=== PATIENT | female | born 1995 | race Two or more races ===

== ENCOUNTER 2020-03-22 12:03 | Emergency (ER) | payer OTHER ==
--- NOTE | 2020-03-22 12:36 | ER Document Report ---
ED Medical Screen (RME) - General Chief Complaint: Vag Bleeding, +preg <12wks Stated Complaint: ABDOMINAL PAIN Time Seen by Provider: 03/22/20 12:33 Mode of Arrival: Ambulatory Information source: Patient Notes: 25-year-old female presented to ED for complaint of pelvic pain and vaginal bleeding x3 days. She states the bleeding is a little easier now than it was. She is 2 para 1. Last menstrual period was 02/13/2020. She states she does not smoke drink or use any drugs. She is alert oriented respirations regular and unlabored speaking in full sentences. I have greeted and performed a rapid initial assessment of this patient. A comprehensive ED assessment and evaluation of the patient, analysis of test results and completion of medical decision making process will be conducted by an additional ED providers. - Related Data Allergies/Adverse Reactions: No Known Allergies Allergy (Unverified 03/22/20 12:18) Past Medical History - Social History Frequency of alcohol use: None Drug Abuse: None Physical Exam - Vital signs Vitals: Temp Pulse Resp BP Pulse Ox 98.8 F 55 L 17 118/78 99 03/22/20 12:16 03/22/20 12:16 03/22/20 12:16 03/22/20 12:16 03/22/20 12:16 Course - Vital Signs Vital signs: Temp Pulse Resp BP Pulse Ox 98.8 F 55 L 17 118/78 99 03/22/20 12:19 03/22/20 12:16 03/22/20 12:16 03/22/20 12:16 03/22/20 12:16
[2020-03-22 12:50] LABS: ABSOLUTE EOSINOPHILS # (AUTO) 0.1 10^3/uL (0.0-0.6); ABSOLUTE LYMPHOCYTES (AUTO) 2.2 10^3/uL (0.5-4.7); ABSOLUTE MONOCYTES (AUTO) 0.4 10^3/uL (0.1-1.4); ABSOLUTE NEUT (AUTO) 4.9 10^3/uL (1.7-8.2); BASOPHILS % (AUTO) 0.3 % (0-2); EOSINOPHILS % (AUTO) 1.7 % (0-6); HEMOGLOBIN 13.7 g/dL (12.0-15.5); LYMPHOCYTES % (AUTO) 29.1 % (13-45); MEAN CORPUSCULAR HEMOGLOBIN 32.1 pg (27.0-33.4); MEAN CORPUSCULAR HGB CONC 34.4 g/dL (32.0-36.0); MEAN CORPUSCULAR VOLUME 93 fl (80-97); MONOCYTES % (AUTO) 5.6 % (3-13); PLATELET COUNT 362 10^3/uL (150-450); RED BLOOD COUNT 4.29 10^6/uL (3.72-5.28); RED CELL DISTRIBUTION WIDTH 13.7 % (11.5-14.0); SEGMENTED NEUTROPHILS % (AUTO) 63.3 % (42-78); TOTAL CELLS COUNTED % (AUTO) 100 %; WHITE BLOOD COUNT 7.7 10^3/uL (4.0-10.5)
[2020-03-22 13:08] LABS: ALBUMIN 4.6 g/dL (3.5-5.0); ALKALINE PHOSPHATASE 42 U/L (38-126); ANION GAP 6 (5-19); ASPARTATE AMINO TRANSFERASE 19 U/L (14-36); BILIRUBIN,TOTAL 0.7 mg/dL (0.2-1.3); BLOOD UREA NITROGEN 17 mg/dL (7-20); CALCIUM 10.1 mg/dL (8.4-10.2); CARBON DIOXIDE 26 mmol/L (22-30); CHLORIDE 106 mmol/L (98-107); GLUCOSE 92 mg/dL (75-110); POTASSIUM 4.4 mmol/L (3.6-5.0); TOTAL PROTEIN 8.2 g/dL (6.3-8.2)
--- NOTE | 2020-03-22 13:27 | RADIOLOGY REPORT (SQ) ---
EXAM DESCRIPTION: U/S OB TRANSVAGINAL W/O DOP IMAGES COMPLETED DATE/TIME: 03/22/2020 1:02 pm REASON FOR STUDY: vaginal bleeding COMPARISON: None. TECHNIQUE: Transvaginal static and realtime grayscale images acquired of the pelvis. Additional richelle cted spectral and color Doppler images recorded. All images stored on PACs. bHCG: Pending. CLINICAL DATES: MARGY: 11/19/2020. EGAi: 5 weeks 3 days LIMITATIONS: None. FINDINGS: FETUS: No Living intrauterine . UTERUS: The uterus measures 6.9 x 4.2 x 5.4 cm. No masses. No anomalies. CERVICAL LENGTH: 2.0 cm. Closed. RIGHT ADNEXA: The right ovary measures 2.6 x 1.4 x 1.7 cm. Normal ovary with normal vascular flow. No adnexal free fluid. No adnexal masses. LEFT ADNEXA: The left ovary measures 2.8 x 1.4 x 1.9 cm. Normal ovary with normal vascular flow. No adnexal free fluid. No adnexal masses. FREE FLUID: None. OTHER: The endometrial stripe measures 3.5 mm. IMPRESSION: 1. No evidence of LIVING INTRAUTERINE . Clinical correlation, correlation wit h lab values and follow-up examination suggested. TECHNICAL DOCUMENTATION: JOB ID: [id number] [employer]- All Rights Reserved rev-02/22 Reading location - IP/workstation name: [email or web address]
--- NOTE | 2020-03-22 13:48 | ER Document Report ---
ED GI/ - General Chief Complaint: Vag Bleeding, +preg <12wks Stated Complaint: ABDOMINAL PAIN Time Seen by Provider: 03/22/20 12:33 Primary Care Provider: JUDY TRINIDAD MD [ACTIVE STAFF] - Follow up as needed RASHIDA JOLLEY PA [Primary Care Provider] - Follow up as needed Mode of Arrival: Ambulatory Information source: Patient Notes: 25-year-old female presents to the emergency room with vaginal bleeding that started 3 days ago. Complains of lower pelvic cramping. Not taking any medications for symptoms. Arturo symptoms. States she had a positive home pre gnancy test approximately 1 week ago. Is sexually active without any use of control. States she passed some clots on Sunday and is now only lightly spotting. 2 para 1. TRAVEL OUTSIDE OF THE [place] IN LAST 30 DAYS: No - Related Data Allergies/Adverse Reactions: No Known Allergies Allergy (Unverified 03/22/20 12:18) Past Medical History - General Information source: Patient - Social History Smoking Status: Never Smoker Frequency of alcohol use: None Drug Abuse: None Family History: Reviewed & Not Pertinent Patient has homicidal ideation: No Review of Systems - Review of Systems Constitutional: No symptoms reported Cardiovascular: No symptoms reported Respiratory: No symptoms reported Gastrointestinal: No symptoms reported. denies: Nausea, Vomiting Female Genitourinary: , Vaginal bleeding, Other - Pelvic cramping Skin: No symptoms reported Neurological/Psychological: No symptoms reported -: Yes All other systems reviewed and negative Physical Exam - Vital signs Vitals: Temp Pulse Resp BP Pulse Ox 98.8 F 55 L 17 118/78 99 03/22/20 12:16 03/22/20 12:16 03/22/20 12:16 03/22/20 12:16 03/22/20 12:16 - General General appearance: Appears well, Alert In distress: Mild - Respiratory Respiratory status: No respiratory distress Chest status: Nontender Breath sounds: Normal Chest palpation: Normal - Cardiovascular Rhythm: Bradycardia Heart sounds: Normal auscultation Murmur: No - Abdominal Inspection: Normal Distension: No distension Bowel sounds: Normal Tenderness: Nontender Organomegaly: No organomegaly - Back Back: Normal, Nontender. No: CVA tenderness - Neurological Neuro grossly intact: Yes Cognition: Normal Orientation: AAOx4 Sarah Coma Scale Eye Opening: Spontaneous Sarah Coma Scale Verbal: Oriented Lefors Coma Scale Motor: Obeys Commands L[place]ors Coma Scale Total: 15 Speech: Normal Motor strength normal: LUE, RUE, LLE, RLE Sensory: Normal - Skin Skin Temperature: Warm Skin Moisture: Dry Skin Color: Normal Course - Re-evaluation Re-evalutation: 03/22/20 14:36 Patient is resting comfortably she is pain-free on exam. Reviewed all test results with patient. Confirmed that she is not . Counseled patient that with a negative blood test in the emergency room with a positive home test a week ago indicates a false positive on her home test. She is in no acute distress, she is afebrile, she is nontoxic-appearing, states she is only lightly spotting at this time. Recommend outpatient follow- up with a assistant boiler operator as discussed. Provided with on-call physician. Patient was given strict return to the emergency room guidelines. Return for any new or worsening symptoms. All questions were answered. Patient verbalized u nderstanding and agrees with plan of care. 03/22/20 20:23 - Vital Signs Vital signs: Temp Pulse Resp BP Pulse Ox 98.5 F 75 18 120/75 100 03/22/20 15:04 03/22/20 15:04 03/22/20 15:04 03/22/20 15:04 03/22/20 15:04 - Laboratory Result Diagrams: 03/22/20 12:40 03/22/20 12:40 Laboratory results interpreted by me: 03/22/20 13:58 Urine Blood LARGE H Discharge - Discharge Clinical Impression: Dysfunctional uterine bleeding Condition: Stable Disposition: HOME, SELF-CARE Instructions: Dysfunctional Uterine Bleeding ([facility]) Referrals: RASHIDA JOLLEY PA [Primary Care Provider] - Follow up as needed JUDY TRINIDAD MD [ACTIVE STAFF] - Follow up as needed
[2020-03-22 14:26] LABS: APPEARANCE,URINE CLEAR; BILIRUBIN,URINE NEGATIVE (NEGATIVE); COLOR,URINE STRAW; GLUCOSE, URINE NEGATIVE (NEGATIVE); KETONES,URINE NEGATIVE (NEGATIVE); LEUKOCYTE ESTERASE,URINE NEGATIVE (NEGATIVE); NITRITE,URINE NEGATIVE (NEGATIVE); PROTEIN,URINE NEGATIVE (NEGATIVE); URINE SPECIFIC GRAVITY 1.006; UROBILINOGEN,URINE NEGATIVE mg/dL (<2.0)
[2020-03-22 15:06] VITALS: BP 120/75
== END 2020-03-22 15:06 | disposition home or self-care (01) ==
LOC: ER 12:03
DX: N93.8 Other specified abnormal uterine and vaginal bleeding (principal); R10.2 Pelvic and perineal pain
CPT/HCPCS: 36415; 76817; 80053; 81001; 84702; 85025; 86900; 86901; 87086; 99284